=== PATIENT | male | born 1960 | race African-American/Black ===

== ENCOUNTER 2017-09-17 09:10 | Emergency (ER) | payer OTHER ==
[~2017-09-17] VITALS: Ht 180.3 cm; Wt 86.2 kg
[2017-09-17 09:35] VITALS: BP 149/94
[2017-09-17 11:08] LABS: Hepatitis B Surface Antibody Positive
== END 2017-09-17 10:23 | disposition home or self-care (01) ==
LOC: ER 09:10
DX: Z77.21 Contact with and (suspected) exposure to potentially hazardous body fluids (principal); X58.XXXA Exposure to other specified factors, initial encounter; Y93.9 Activity, unspecified; Y99.0 Civilian activity done for income or pay; Y92.239 Unspecified place in hospital as the place of occurrence of the external cause
CPT/HCPCS: 36415; 86703; 86706; 86803; 87340